=== PATIENT | female | born 1995 | race Two or more races ===

== ENCOUNTER 2016-10-19 17:52 | Emergency (ER) | payer MEDICAID ==
--- NOTE | 2016-10-19 19:43 | EDPHY ---
H & P Time Seen by Provider: 10/19/16 19:36 HPI/ROS: Chief complaint. Abdominal pain HPI. 20-year-old female right mid abdominal pain sudden onset with eating this afternoon. Hurts with movement and bending over. No radiation through to her back. No nausea vomiting. Some loose stools. She has been told she has IBS and has had a variety of different abdominal pains in the past. However no previous abdominal surgery. No urinary symptoms. No chest discomfort or shortness of breath. Mom has gallbladder disease. ROS Constitutional. no fever/chills, no weakness Eyes. no problems with vision ENT. no sore throat, no nasal drainage Cardiovascular. no chest pain Respiratory. no shortness of breath, no cough Abdominal. Right mid abdominal pain with some diarrhea . no problems urinating MS. no calf pain/swelling, no neck/back pain, no joint pain Skin. no rash Lymph. no swollen glands Neuro. no headache, no dizziness, no difficulty walking or with speech Past Medical/Surgical History: Healthy Social History: Single, nonsmoker, no alcohol Smoking Status: Never smoked Physical Exam: General Appearance: Alert pleasant well-developed female mild distress vital signs stable Eyes: Pupils equal and round no pallor or injection. ENT, Mouth: Mucous membranes are moist. Respiratory: There are no retractions, lungs are clear to auscultation. Cardiovascular: Regular rate and rhythm. Gastrointestinal: Abdomen is soft with some tenderness in the right mid abdomen. No tenderness at McBurney's point or in the right lower quadrant. Some right upper quadrant tenderness as well. No masses. Normal bowel sounds Neurological: Awake and alert, sensory and motor exams grossly normal. Skin: Warm and dry, no rashes. Musculoskeletal: Neck is supple nontender. Extremities symmetrical, full range of motion. Psychiatric: Patient is oriented X 3, there is no agitation. Constitutional: Initial Vital Signs Temperature (C) 36.3 C 10/19/16 17:55 Heart Rate 98 10/19/16 17:55 Respiratory Rate 16 10/19/16 17:55 Blood Pressure 106/78 10/19/16 17:55 O2 Sat (%) 99 10/19/16 17:55 O2 Delivery Mode Room Air Allergies/Adverse Reactions: No Known Allergies Allergy (Unverified 04/18/16 23:54) Home Medications: Medication Instructions Recorded Amoxicillin 500 mg PO TID 7 Days 04/19/16 Fluticasone Nasal [Flonase Nasal 1 sprays NASAL DAILY #1 mdi 04/19/16 [facility] (RX)] Medical Decision Making - Diagnostics Imaging Results: Imaging Impressions Abdomen Ultrasound 10/19/16 19:55 Impression: No cholelithiasis or biliary ductal dilation. Findings and recommendations discussed with Emergency Department physician, DESTINY MULLINS at 22:12 hour, 10/19/2016. Final report concurs with initial preliminary interpretation. Abdomen X-Ray 10/19/16 19:55 Impression: Mild constipation. E:GI/amm Right upper quadrant ultrasound is normal KUB reviewed by me and discussed with Dr. Velazquez shows constipation. No evidence of air-fluid levels or free air Procedures: IV normal saline ED Course/Re-evaluation: On re-evaluation at 10:20 p.m. patient is stable. She has no complaints. However review of her labs show the patient to have been fairly acidotic with a CO2 14 on our initial labs with an elevated anion gap. We will repeat the Chem 7 has I do not really have an explanation for patient's significant acidosis. Patient and I discussed laboratory and imaging evaluation. We discussed treatment plan including criteria for return importance of follow-up and further evaluation. She expresses understanding and agreement Repeat Chem 7 is normal Re-evaluated at 11:10 p.m. patient is stable Differential Diagnosis: I considered gastritis, pancreatitis, cholecystitis. I also considered urinary tract infection pancreatitis - Data Points Laboratory Results: Laboratory Results 10/19/16 19:20 10/19/16 22:15 10/19/16 10/19/16 10/19/16 22:15 20:14 19:56 WBC RBC Hgb Hct MCV MCH MCHC RDW Plt Count MPV Neut % (Auto) Lymph % (Auto) [place]oard % (Auto) Eos % (Auto) Baso % (Auto) Nucleat RBC Rel Count Absolute Neuts (auto) Absolute Lymphs (auto) Absolute Monos (auto) Absolute Eos (auto) Absolute Basos (auto) Absolute Nucleated RBC Immature Gran % Immature Gran # Sodium 139 mEq/L mEq/L (134-144) Potassium 3.6 mEq/L mEq/L (3.5-5.2) Chloride 108 mEq/L mEq/L (97-110) Carbon Dioxide 20 mEq/l L D mEq/l (22-31) Anion Gap 11 mEq/L mEq/L (8-16) BUN 10 mg/dL mg/dL (7-23) Creatinine 0.6 mg/dL mg/dL (0.6-1.0) Estimated GFR > 60 Glucose 102 mg/dL H mg/dL (70-100) Calcium 8.6 mg/dL mg/dL (8.5-10.4) Total Bilirubin Conjugated Bilirubin Unconjugated Bilirubin AST ALT Alkaline Phosphatase Total Protein Albumin Lipase Beta HCG, Qual NEGATIVE Specimen Hemolysis Urine Color YELLOW Urine Appearance CLEAR Urine pH 5.0 (5.0-7.5) Ur Specific [place] 1.011 (1.002-1.030) Urine Protein NEGATIVE (NEGATIVE) Urine Ketones NEGATIVE (NEGATIVE) Urine Blood 1+ H (NEGATIVE) Urine Nitrate NEGATIVE (NEGATIVE) Urine Bilirubin NEGATIVE (NEGATIVE) Urine Urobilinogen NEGATIVE EU EU (0.2-1.0) Ur Leukocyte Esterase TRACE H (NEGATIVE) Urine RBC 1-3 /hpf /hpf (0-3) Urine WBC 1-3 /hpf /hpf (0-3) Ur Epithelial Cells TRACE /lpf /lpf (NONE-1+) Urine Mucus TRACE /lpf /lpf (NONE-1+) Urine Glucose NEGATIVE (NEGATIVE) 10/19/16 10/19/16 10/19/16 19:56 19:20 19:20 WBC 7.32 10^3/uL 10^3/uL (3.80-9.50) RBC 4.42 10^6/uL 10^6/uL (4.18-5.33) Hgb 12.3 g/dL L g/dL (12.6-16.3) Hct 37.6 % L % (38.0-47.0) MCV 85.1 fL fL (81.5-99.8) MCH 27.8 pg L pg (27.9-34.1) MCHC 32.7 g/dL g/dL (32.4-36.7) RDW 13.6 % % (11.5-15.2) Plt Count 184 10^3/uL 10^3/uL (150-400) MPV 10.9 fL fL (8.7-11.7) Neut % (Auto) 48.5 % % (39.3-74.2) Lymph % (Auto) 44.4 % % (15.0-45.0) Foard % (Auto) 5.5 % % (4.5-13.0) Eos % (Auto) 1.1 % % (0.6-7.6) Baso % (Auto) 0.4 % % (0.3-1.7) Nucleat RBC Rel Count 0.0 % % (0.0-0.2) Absolute Neuts (auto) 3.55 10^3/uL 10^3/uL (1.70-6.50) Absolute Lymphs (auto) 3.25 10^3/uL H 10^3/uL (1.00-3.00) Absolute Monos (auto) 0.40 10^3/uL 10^3/uL (0.30-0.80) Absolute Eos (auto) 0.08 10^3/uL 10^3/uL (0.03-0.40) Absolute Basos (auto) 0.03 10^3/uL 10^3/uL (0.02-0.10) Absolute Nucleated RBC 0.00 10^3/uL 10^3/uL (0-0.01) Immature Gran % 0.1 % % (0.0-1.1) Immature Gran # 0.01 10^3/uL 10^3/uL (0.00-0.10) Sodium 144 mEq/L mEq/L (134-144) Potassium 4.6 mEq/L mEq/L (3.5-5.2) Chloride 111 mEq/L H mEq/L (97-110) Carbon Dioxide 14 mEq/l L mEq/l (22-31) Anion Gap 19 mEq/L H mEq/L (8-16) BUN 12 mg/dL mg/dL (7-23) Creatinine 0.7 mg/dL mg/dL (0.6-1.0) Estimated GFR > 60 Glucose 145 mg/dL H mg/dL (70-100) Calcium 9.6 mg/dL mg/dL (8.5-10.4) Total Bilirubin 1.2 mg/dL mg/dL (0.1-1.4) Conjugated Bilirubin 1.0 mg/dL H mg/dL (0.0-0.5) Unconjugated Bilirubin 0.2 mg/dL mg/dL (0.0-1.1) AST 56 IU/L H IU/L (14-46) ALT 11 IU/L IU/L (9-52) Alkaline Phosphatase 63 IU/L IU/L (38-126) Total Protein 7.8 g/dL g/dL (6.3-8.2) Albumin 4.5 g/dL g/dL (3.5-5.0) Lipase 115.0 IU/L IU/L (23-300) Beta HCG, Qual Specimen Hemolysis 190 Urine Color Urine Appearance Urine pH Ur Specific [place] Urine Protein Urine Ketones Urine Blood Urine Nitrate Urine Bilirubin Urine Urobilinogen Ur Leukocyte Esterase Urine RBC Urine WBC Ur Epithelial Cells Urine Mucus Urine Glucose Medications Given: Discontinued Medications Sodium Chloride (Ns) 1,000 mls @ 0 mls/hr IV ONCE ONE PRN Reason: Wide Open Stop: 10/19/16 22:22 Last Admin: 10/19/16 22:35 Dose: 1,000 mls Departure - Departure Disposition: Home, Routine, Self-Care Clinical Impression: Abdominal pain Qualifiers: Abdominal location: right upper quadrant Qualified Code(s): R10.11 - Right upper quadrant pain Condition: Good Instructions: Constipation (ED) Additional Instructions: Increased fluids including fruit and prune juice. Milk of magnesia, edison Colace , magnesium citrate for constipation. Return for worsening symptoms. Recheck in 2 days for continuing symptoms Referrals: SELVIN APODACA [Other] - 2-3 days, if not improved
[2016-10-19 20:00] LABS: % IMMATURE GRANULYOCYTES 0.1 % (0.0-1.1); ABSOLUTE IMMATURE GRANULOCYTES 0.01 10^3/uL (0.00-0.10); ADD DIFF? NO; ADD MORPH? NO; ADD SCAN? YES; ATYPICAL LYMPHOCYTE FLAG 0 (0-99); FRAGMENT RBC FLAG 0 (0-99); HEMATOCRIT 37.6 % (38.0-47.0); HEMOGLOBIN 12.3 g/dL (12.6-16.3); LEFT SHIFT FLG 0 (0-99); LIPEMIA HEMOLYSIS FLAG 80 (0-99); MEAN CELL HEMOGLOBIN 27.8 pg (27.9-34.1); MEAN CELL HEMOGLOBIN CONCENTR. 32.7 g/dL (32.4-36.7); MEAN CELL VOLUME 85.1 fL (81.5-99.8); MEAN PLATELET VOLUME 10.9 fL (8.7-11.7); PLATELET COUNT 184 10^3/uL (150-400); RED BLOOD CELL COUNT 4.42 10^6/uL (4.18-5.33); RED CELL DISTRIBUTION WIDTH 13.6 % (11.5-15.2)
[2016-10-19 20:14] LABS: PLATELET CLUMPS FLAG 300 (0-99)
[2016-10-19 20:35] LABS: ALBUMIN 4.5 g/dL (3.5-5.0); BILIRUBIN,TOTAL 1.2 mg/dL (0.1-1.4); BILIRUBIN-UNCONJUGATED 0.2 mg/dL (0.0-1.1); TOTAL PROTEIN 7.8 g/dL (6.3-8.2)
[2016-10-19 20:45] LABS: COLOR YELLOW; LEUKOCYTE ESTERASE,URINE TRACE (NEGATIVE); NITRITE,URINE NEGATIVE (NEGATIVE)
[2016-10-19 21:00] LABS: SCAN NEGATIVE
[2016-10-19 21:08] LABS: MUCUS TRACE /lpf (NONE-1+)
[2016-10-19 21:22] LABS: ANION GAP 19 mEq/L (8-16); CALCIUM 9.6 mg/dL (8.5-10.4); CARBON DIOXIDE 14 mEq/l (22-31); CHLORIDE 111 mEq/L (97-110); CREATININE 0.7 mg/dL (0.6-1.0); GLOMERULAR FILTRATION RATE > 60; GLUCOSE 145 mg/dL (70-100); POTASSIUM 4.6 mEq/L (3.5-5.2); SODIUM 144 mEq/L (134-144); SPECIMEN HEMOLYSIS 190
[2016-10-19] MEDS ORDERED: NS 1,000 ML IV ONE (22:21)
[2016-10-19 23:07] LABS: ANION GAP 11 mEq/L (8-16); CALCIUM 8.6 mg/dL (8.5-10.4); CARBON DIOXIDE 20 mEq/l (22-31); CHLORIDE 108 mEq/L (97-110); CREATININE 0.6 mg/dL (0.6-1.0); GLOMERULAR FILTRATION RATE > 60; GLUCOSE 102 mg/dL (70-100); POTASSIUM 3.6 mEq/L (3.5-5.2); SODIUM 139 mEq/L (134-144)
[2016-10-19 23:22] VITALS: RESP 16
[2016-10-19 23:23] VITALS: BP 108/71; PULSE 77; TEMP 98.1; O2SAT 97
== END 2016-10-19 23:23 | disposition home or self-care (01) ==
DX: R10.11 Right upper quadrant pain (principal)